=== PATIENT | male | born 1965 | race Caucasian/White ===

== ENCOUNTER 2024-09-06 06:32 | Day surgery (SDC) | payer OTHER, SELFPAY ==
[2024-08-23 08:45] LABS: Hematocrit 43.3 % (39.0-52.0); Hemoglobin 15.4 g/dL (13.0-18.0); Mean Corp Hgb Conc. 35.6 g/dL (33.0-37.0); Mean Corpuscular Hgb 32.3 pg (27.0-31.0); Mean Corpuscular Volume 90.8 fL (80.0-94.0); Platelet Count 257 10^3/uL (130-400); Red Blood Cell Count 4.77 10^6/uL (4.70-6.10); Red Cell Dist. Width 12.5 % (11.5-14.5); White Blood Cell Count 4.6 10^3/uL (4.8-10.8)
[2024-08-23 09:26] LABS: Blood Urea Nitrogen 17 mg/dl (9-20); Calcium 9.7 mg/dl (8.4-10.2); Carbon Dioxide 28 mmol/L (22-30); Chloride 102 mmol/L (98-107); Glucose 101 mg/dl (70-99); Potassium 4.6 mmol/L (3.5-5.1); Sodium 143 mmol/L (135-145); eGFR > 60.00
[2024-08-23 09:58] VITALS: BMI 27.8
[2024-09-06] VITALS (9 sets, daily range): BP systolic 89–147; BP diastolic 70–92; BMI 27.8
[2024-09-06] MEDS: TYLENOL 1000 MG PO (10:51)
== END 2024-09-06 16:10 | disposition home or self-care (01) ==
LOC: SDS 06:32
PROVIDERS: ATTENDING PHYSICIAN Surgery
DX: K42.9 Umbilical hernia without obstruction or gangrene (principal)
CPT/HCPCS: 49591; 36415; 80048; 85027; 93005

== ENCOUNTER → 2025-05-24 09:11 | Outpatient (REF) | payer OTHER, SELFPAY | LOC: HWRAD 09:11 | PROVIDERS: ATTENDING PHYSICIAN Nurse Practitioner Family | DX: E03.9 Hypothyroidism, unspecified (principal) | CPT/HCPCS: 76536 ==